=== PATIENT | male | born 1955 | race Caucasian/White ===

== ENCOUNTER 2023-10-15 08:00 | Outpatient (CLI) | payer MEDICARE, BC ==
--- NOTE | 2023-10-15 16:31 | XRAY Report ---
PROCEDURE: Chest 2 View X-Ray INDICATIONS: BACTERIAL PNEUMONIA TECHNIQUE: 2 views of the chest were acquired. COMPARISON: None. FINDINGS: Surgical changes and devices: None. Lungs and pleura: No pleural effusions or pneumothorax. Lungs are clear. Mediastinum: Mediastinal contours appear normal. Heart size is normal. Bones and chest wall: No suspicious bony lesions. Overlying soft tissues appear unremarkable. IMPRESSION: No acute cardiopulmonary process. Reviewed by: Isma Carmen MD on 10/15/2023 4:30 PM PST Approved by: Isma Carmen MD on 10/15/2023 4:30 PM PST Station ID: [id number]
== END 2023-10-15 23:59 | disposition home or self-care (01) ==
LOC: DI.S 08:00
PROVIDERS: ATTEND Emergency Medicine
DX: J15.9 Unspecified bacterial pneumonia (principal)